=== PATIENT | male | born 1995 | race Caucasian/White ===

== ENCOUNTER → 2017-03-07 | Outpatient (CLI) | payer OTHER ==
--- NOTE | 2017-03-07 13:29 | MR ---
EXAMINATION TYPE: MR lumbar spine wo con DATE OF EXAM: 03/07/2017 COMPARISON: NONE HISTORY: dorsalgia TECHNIQUE: T1 and T2 axial and sagittal images of the lumbar spine are submitted. FINDINGS: There is no abnormal signal seen within the visualized spinal cord or paraspinal soft tissu es. At L1-2 there is loss of disc space and signal. There is circumferential disc bulging. No canal steno sis or foraminal encroachment. At L2-3 there is no disc herniation, canal stenosis, or foraminal encroachment. At L3-4 there is no disc herniation, canal stenosis, or foraminal encroachment. There is facet arthro sherrill. At L4-5 there is facet arthropathy with no disc herniation or canal stenosis. No foraminal encroachme nt. At L5-S1 there is annular tear and central small disc protrusion. Facet arthropathy seen. No foramina l encroachment. No Canal stenosis. IMPRESSION: 1. Annular tear and small focal central disc protrusion L5-S1 with mild effacement of thecal sac but no canal stenosis or foraminal encroachment. 2. Degenerative disc disease and circumferential disc bulging L1-L2 with no canal stenosis or foramin al encroachment.
== END | disposition home or self-care (01) ==
LOC: RADMRIMAIN 12:39
PROVIDERS: ATTEND Physician Assistant
DX: M51.27 Other intervertebral disc displacement, lumbosacral region (principal); M51.36 Other intervertebral disc degeneration, lumbar region
CPT/HCPCS: 72148

== ENCOUNTER 2017-07-26 22:46 | Emergency (ER) | payer OTHER ==
[2017-07-27 00:50] LABS: Amphetamine Screen,Urine Not Detected (NotDetected); Barbiturate Screen,Urine Not Detected (NotDetected); Benzodiazepines Screen,Urine Not Detected (NotDetected); Cocaine Screen,Urine Not Detected (NotDetected); Methadone Screen, Urine Not Detected (NotDetected); Opiate Screen,Urine Not Detected (NotDetected); Oxycodone Screen, Urine Not Detected (NotDetected); Phencyclidine Screen,Urine Not Detected (NotDetected); Tricyclic Antidepressant,Urine Not Detected (NotDetected); Urn Cannabinoid Scrn Detected (NotDetected)
--- NOTE | 2017-07-27 00:50 | ED ---
Psych HPI - General Source: patient, family, RN notes reviewed Mode of arrival: ambulatory Limitations: no limitations <Marc Grace - Last Filed: 07/27/17 03:33> <Dav Rae - Last Filed: 07/27/17 03:55> - General Chief Complaint: Psychiatric Symptoms Stated Complaint: Suicidal-Drank Bleach Time Seen by Provider: 07/26/17 23:55 - History of Present Illness Initial Comments: 22-year-old male presents emergency Department chief complaint of suicidal. Patient states that he is very depressed, suicidal states that he drinks alcohol and states he does want to live anymore. Patient is on probation for alcohol problems. 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 Patient states he drank approximately half the bottle around 9:30 PM. Patient states he has a upset stomach denies any vomiting slight nausea. Patient denies any chest pain or shortness breath no difficulty swallowing. Patient is brought to emergency department by family for evaluation. (Marc Grace) - Related Data Allergies Allergy/AdvReac Type Severity Reaction Status Date / Time No Known Allergies Allergy Verified 07/26/17 23:41 Review of Systems ROS Other: All systems not noted in ROS Statement are negative. <Marc Grace - Last Filed: 07/27/17 03:33> ROS Other: All systems not noted in ROS Statement are negative. <Dav Rae - Last Filed: 07/27/17 03:55> ROS Statement: Those systems with pertinent positive or pertinent negative responses have been documented in the HPI. Past Medical History Past Medical History: Asthma Additional Past Medical History / Comment(s): degenerative spine disease, TBI History of Any Multi-Drug Resistant Organisms: None Reported Past Surgical History: No Surgical Hx Reported Past Psychological History: Anxiety, Depression Smoking Status: Current every day smoker Past Alcohol Use History: Daily Past Drug Use History: Cocaine, Marijuana <Marc Grace - Last Filed: 07/27/17 03:33> General Exam General appearance: alert, in no apparent distress Head exam: Present: atraumatic, normocephalic, normal inspection Eye exam: Present: normal appearance, PERRL, EOMI. Absent: scleral icterus, conjunctival injection, periorbital swelling ENT exam: Present: normal exam, normal oropharynx, mucous membranes moist, TM's normal bilaterally, normal external ear exam Neck exam: Present: normal inspection, full ROM. Absent: tenderness, meningismus, lymphadenopathy Respiratory exam: Present: normal lung sounds bilaterally. Absent: respiratory distress, wheezes, rales, rhonchi, stridor Cardiovascular Exam: Present: regular rate, normal rhythm, normal heart sounds. Absent: systolic murmur, diastolic murmur, rubs, gallop, clicks GI/Abdominal exam: Present: soft, tenderness (Mild epigastric tenderness), normal bowel sounds. Absent: distended, guarding, rebound, rigid Neurological exam: Present: alert Psychiatric exam: Present: agitated Skin exam: Present: warm, dry, intact, normal color. Absent: rash <Marc Grace - Last Filed: 07/27/17 03:33> Course <Marc Grace - Last Filed: 07/27/17 03:33> <Dav Rae - Last Filed: 07/27/17 03:55> Vital Signs 07/26/17 23:34 Temperature 98.5 F Pulse Rate 87 Respiratory 12 Rate Blood Pressure 141/95 O2 Sat by Pulse 98 Oximetry - Reevaluation(s) Reevaluation #1: 07/27/17 03:55 The patient was evaluated by psychiatric service and at this time is not suicidal or homicidal. Patient will be discharged with outpatient referral. ( Dav Rae) Medical Decision Making - Lab Data Result diagrams: 07/27/17 01:20 07/27/17 01:20 <Marc Grace - Last Filed: 07/27/17 03:33> - Lab Data Result diagrams: 07/27/17 01:20 07/27/17 01:20 <Dav Rae - Last Filed: 07/27/17 03:55> - Medical Decision Making 22-year-old male present emergency department for psychiatric evaluation. Patient was evaluated by EPS case discussed with psychiatrist they did not recommend inpatient treatment he states that he is not suicidal he did drink bleach in which poison control was contacted by do not recommend any treatment. Stated that we can obtain basic labs if needed. Patient's labs were obtained no acute abnormality. Patient again states that he is not suicidal is not homicidal. He was intoxicated and states that he may poor decisions. Patient will be discharged with follow-up return parameters were discussed. (Marc Grace) - Lab Data Lab Results 07/27/17 07/27/17 07/27/17 Range/Units 00:14 01:20 01:20 WBC 9.4 (3.8-10.6) k/uL RBC 5.58 (4.30-5.90) m/uL Hgb 16.8 (13.0-17.5) gm/dL Hct 51.8 (39.0-53.0) % MCV 92.9 (80.0-100.0) fL MCH 30.2 (25.0-35.0) pg MCHC 32.5 (31.0-37.0) g/dL RDW 14.6 (11.5-15.5) % Plt Count 330 (150-450) k/uL Neutrophils % 60 % Lymphocytes % 29 % Monocytes % 5 % Eosinophils % 4 % Basophils % 1 % Neutrophils # 5.6 (1.3-7.7) k/uL Lymphocytes # 2.7 (1.0-4.8) k/uL Monocytes # 0.5 (0-1.0) k/uL Eosinophils # 0.4 (0-0.7) k/uL Basophils # 0.1 (0-0.2) k/uL Sodium 149 H (137-145) mmol/L Potassium 3.9 (3.5-5.1) mmol/L Chloride 106 (98-107) mmol/L Carbon Dioxide 27 (22-30) mmol/L Anion Gap 16 mmol/L BUN 11 (9-20) mg/dL Creatinine 0.90 (0.66-1.25) mg/dL Est GFR (MDRD) Af Amer >60 (>60 ml/min/1.73 sqM) Est GFR (MDRD) Non-Af >60 (>60 ml/min/1.73 sqM) Glucose 97 (74-99) mg/dL Calcium 9.8 (8.4-10.2) mg/dL Total Bilirubin 0.9 (0.2-1.3) mg/dL AST 27 (17-59) U/L ALT 31 (21-72) U/L Alkaline Phosphatase 52 (38-126) U/L Total Protein 7.7 (6.3-8.2) g/dL Albumin 4.9 (3.5-5.0) g/dL Lipase 97 (23-300) U/L Salicylates <1.0 mg/dL Urine Opiates Screen Not Detected (NotDetected) Ur Oxycodone Screen Not Detected (NotDetected) Urine Methadone Screen Not Detected (NotDetected) Ur Propoxyphene Screen Not Detected (NotDetected) Acetaminophen <10.0 ug/mL Ur Barbiturates Screen Not Detected (NotDetected) U Tricyclic Antidepress Not Detected (NotDetected) Ur Phencyclidine Scrn Not Detected (NotDetected) Ur Amphetamines Screen Not Detected (NotDetected) U Methamphetamines Scrn Not Detected (NotDetected) U Benzodiazepines Scrn Not Detected (NotDetected) Urine Cocaine Screen Not Detected (NotDetected) U Marijuana (THC) Screen Detected H (NotDetected) Disposition Time of Disposition: 03:36 <Marc Grace - Last Filed: 07/27/17 03:33> <Dav Rae - Last Filed: 07/27/17 03:55> Clinical Impression: Alcohol intoxication, Depression, Ingestion of bleach, Personality disorder Disposition: HOME SELF-CARE Condition: Stable Instructions: Depression (ED) Additional Instructions: Please return to the Emergency Department if symptoms worsen or any other concerns. Referrals: Camden Suarez MD [Primary Care Provider] - 1-2 days
[2017-07-27 01:30] LABS: Basophils # (A) 0.1 k/uL (0-0.2); Basophils % (A) 1 %; Eosinophils # (A) 0.4 k/uL (0-0.7); Eosinophils % (A) 4 %; HCT 51.8 % (39.0-53.0); HGB 16.8 gm/dL (13.0-17.5); Lymphocytes # (A) 2.7 k/uL (1.0-4.8); Lymphocytes % (A) 29 %; MCH 30.2 pg (25.0-35.0); MCHC 32.5 g/dL (31.0-37.0); MCV 92.9 fL (80.0-100.0); Mean Platelet Volume 6.9; Monocytes # (A) 0.5 k/uL (0-1.0); Monocytes % (A) 5 %; Neutrophils # (A) 5.6 k/uL (1.3-7.7); Neutrophils % (A) 60 %; Platelet Count 330 k/uL (150-450); RBC 5.58 m/uL (4.30-5.90); RDW 14.6 % (11.5-15.5); WBC 9.4 k/uL (3.8-10.6)
[2017-07-27 01:40] LABS: ALT 31 U/L (21-72); AST 27 U/L (17-59); Acetaminophen <10.0 ug/mL; Albumin 4.9 g/dL (3.5-5.0); Alkaline Phosphatase 52 U/L (38-126); Anion Gap 16 mmol/L; Blood Urea Nitrogen 11 mg/dL (9-20); Calcium 9.8 mg/dL (8.4-10.2); Carbon Dioxide 27 mmol/L (22-30); Chloride 106 mmol/L (98-107); Glucose 97 mg/dL (74-99); Lipase 97 U/L (23-300); Potassium 3.9 mmol/L (3.5-5.1); Salicylate <1.0 mg/dL; Sodium 149 mmol/L (137-145); Total Bilirubin 0.9 mg/dL (0.2-1.3); Total Protein 7.7 g/dL (6.3-8.2)
[2017-07-27] MEDS ORDERED: IPRATROPIUM-ALBUTEROL 3 ML NEB INHALATION STA (03:34)
[2017-07-27] MEDS ORDERED: ONDANSETRON ODT 4 MG TAB PO STA (03:35)
[2017-07-27 04:02] VITALS: PULSE 79
[2017-07-27 04:05] VITALS: BP 133/69; RESP 20; TEMP 97
== END 2017-07-27 04:04 | disposition home or self-care (01) ==
LOC: EC 22:46
DX: T54.92XA Toxic effect of unspecified corrosive substance, intentional self-harm, initial encounter (principal); F60.9 Personality disorder, unspecified; F32.9 Major depressive disorder, single episode, unspecified; F10.129 Alcohol abuse with intoxication, unspecified; R45.1 Restlessness and agitation; F17.200 Nicotine dependence, unspecified, uncomplicated
CPT/HCPCS: 36415; 80053; 80306; 82075; 83520; 83690; 85025; 94640; 99284

== ENCOUNTER 2017-07-29 08:33 | Emergency (ER) | payer OTHER ==
--- NOTE | 2017-07-29 09:01 | ED ---
General Adult HPI - General Chief complaint: Psychiatric Symptoms Stated complaint: Depression Time Seen by Provider: 07/29/17 08:48 Source: patient, RN notes reviewed Mode of arrival: ambulatory Limitations: no limitations - History of Present Illness Initial comments: Patient 22-year-old male who presents emergency room today with chief complaint of suicidal ideation. He denies any specific thoughts at this time. 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 He states that he had a head injury 4 years ago had a fractured skull and a brain bleed. He states this has since that time he's noticed that he is does not seem to be the same person has had thoughts of her himself. He states that he's had bouts of problems with alcohol. Does see a counselor for this. States he does not drink now in the last 2 days. Patient states still having increased thoughts of wanting to drink and wanted to hurt himself. Patient denies any homicidal thoughts or plans. Denies any visual or auditory hallucinations. Patient denies any recent fever, chills, shortness of breath, chest pain, back pain, abdominal pain, nausea or vomiting, numbness or tingling, headaches or visual changes, or any other complaints. - Related Data Home Medications Medication Instructions Recorded Confirmed Baclofen [Lioresal] 10 mg PO DAILY PRN 07/29/17 07/29/17 FLUoxetine HCL [PROzac] 20 mg PO DAILY 07/29/17 07/29/17 Allergies Allergy/AdvReac Type Severity Reaction Status Date / Time No Known Allergies Allergy Verified 07/29/17 09:01 Review of Systems ROS Statement: Those systems with pertinent positive or pertinent negative responses have been documented in the HPI. ROS Other: All systems not noted in ROS Statement are negative. Past Medical History Past Medical History: Asthma Additional Past Medical History / Comment(s): degenerative spine disease, TBI History of Any Multi-Drug Resistant Organisms: None Reported Past Surgical History: No Surgical Hx Reported Past Psychological History: Anxiety, Depression Smoking Status: Current every day smoker Past Alcohol Use History: Daily Past Drug Use History: Cocaine, Marijuana General Exam - General Exam Comments Initial Comments: General: The patient is awake and alert, in no distress, and does not appear acutely ill. Eye: Pupils are equal, round and reactive to light, extra-ocular movements are intact. No nystagmus. There is normal conjunctiva bilaterally. No signs of icterus. Ears, nose, mouth and throat: There are moist mucous membranes and no oral lesions. Neck: The neck is supple, there is no tenderness or JVD. Cardiovascular: There is a regular rate and rhythm. No murmur, rub or gallop is appreciated. Respiratory: Lungs are clear to auscultation, respirations are non-labored, breath sounds are equal. No wheezes, stridor, rales, or rhonchi. Musculoskeletal: Normal ROM, no tenderness. Strength 5/5. Sensation intact. Pulses equal bilaterally 2+. Neurological: A&O x 3. CN II-XII intact, There are no obvious motor or sensory deficits. Coordination appears grossly intact. Speech is normal. Skin: Skin is warm and dry and no rashes or lesions are noted. Psychiatric: Cooperative. Limitations: no limitations Course Vital Signs 07/29/17 08:40 Temperature 98.2 F Pulse Rate 69 Respiratory 20 Rate Blood Pressure 160/94 O2 Sat by Pulse 98 Oximetry Medical Decision Making - Medical Decision Making Patient has been seen here in the emergency room by mental [facility]. Patient denies any specific plan of hurting himself. He feels comfortable being discharged. Mental health is comfortable allowing him to follow-up outpatient is been given information. Patient's mother said bedside ever movements in agreement with this. They're advised that they may return anytime or for any concerns. - Lab Data Lab Results 07/29/17 Range/Units 09:05 Urine Opiates Screen Not Detected (NotDetected) Ur Oxycodone Screen Not Detected (NotDetected) Urine Methadone Screen Not Detected (NotDetected) Ur Propoxyphene Screen Not Detected (NotDetected) Ur Barbiturates Screen Not Detected (NotDetected) U Tricyclic Antidepress Not Detected (NotDetected) Ur Phencyclidine Scrn Not Detected (NotDetected) Ur Amphetamines Screen Not Detected (NotDetected) U Methamphetamines Scrn Not Detected (NotDetected) U Benzodiazepines Scrn Not Detected (NotDetected) Urine Cocaine Screen Not Detected (NotDetected) U Marijuana (THC) Screen Detected H (NotDetected) Disposition Clinical Impression: Depression Disposition: HOME SELF-CARE Condition: Good Instructions: Depression (ED) Additional Instructions: Please follow-up with mental health as discussed here the emergency room. Please return to emergency room if any symptoms increase worsen or for any other concerns. Referrals: Rita Carrillo PAC [REFERRING] - 1-2 days Time of Disposition: 11:44
[2017-07-29 09:25] LABS: Amphetamine Screen,Urine Not Detected (NotDetected); Barbiturate Screen,Urine Not Detected (NotDetected); Benzodiazepines Screen,Urine Not Detected (NotDetected); Cocaine Screen,Urine Not Detected (NotDetected); Methadone Screen, Urine Not Detected (NotDetected); Opiate Screen,Urine Not Detected (NotDetected); Oxycodone Screen, Urine Not Detected (NotDetected); Phencyclidine Screen,Urine Not Detected (NotDetected); Tricyclic Antidepressant,Urine Not Detected (NotDetected); Urn Cannabinoid Scrn Detected (NotDetected)
[2017-07-29 11:57] VITALS: BP 143/77; PULSE 60; RESP 18; TEMP 97.3
== END 2017-07-29 11:55 | disposition home or self-care (01) ==
LOC: EC 08:33
DX: F32.9 Major depressive disorder, single episode, unspecified (principal); R45.851 Suicidal ideations; F41.9 Anxiety disorder, unspecified; F17.200 Nicotine dependence, unspecified, uncomplicated; Z79.899 Other long term (current) drug therapy
CPT/HCPCS: 80306; 82075; 99284